=== PATIENT | female | born 1995 | race African-American/Black ===

== ENCOUNTER 2019-11-22 20:47 | Emergency (ER) | payer OTHER ==
[~2019-11-22] VITALS: Ht 157.5 cm; Wt 67.3 kg
[2019-11-22 20:49] VITALS: BP 109/59
== END 2019-11-22 23:05 | disposition left against medical advice (07) ==
LOC: EMS 20:47
DX: I74.9 Embolism and thrombosis of unspecified artery (principal); Z53.21 Procedure and treatment not carried out due to patient leaving prior to being seen by health care provider

== ENCOUNTER 2024-10-18 07:40 | Emergency (ER) | payer MEDICAID, OTHER ==
[~2024-10-18] VITALS: Ht 157.5 cm; Wt 55.0 kg
[2024-10-18 07:44] VITALS: TEMP 97.9
[2024-10-18] MEDS: LIDOCAINE 5% TRANSDERMAL PATCH TD ONE (08:00)
[2024-10-18] MEDS ORDERED: ACETAMINOPHEN 500 MG TABLET PO ONE (08:00)
[2024-10-18] MEDS: OxyCODONE HCL 5 MG IR TABLET PO ONE (08:01)
[2024-10-18] MEDS: SODIUM CHLORIDE 0.9% 1,000 ML IV ONE (08:50)
[2024-10-18 08:54] LABS: PLATELET COUNT (AUTO) 166 K/uL (150-450); RED BLOOD CELL COUNT(AUTO) 4.78 MIL/uL (4.00-5.20); RED CELL DISTRIBUTION WIDTH 13.9 % (11.5-14.5); WHITE BLOOD COUNT (AUTO) 4.5 K/uL (4.5-11.0)
[2024-10-18 09:11] LABS: CALCIUM, TOTAL 9.1 mg/dL (8.8-10.5); CREATININE 0.87 mg/dL (0.60-1.30); GLOMERULAR FILTR. RATE CALC > 60 mL/min (>60); GLUCOSE,RANDOM 101 mg/dL (70-110); SODIUM SERUM 141 mmol/L (136-145); UREA NITROGEN, BLOOD 7 mg/dL (7-18)
[2024-10-18 09:14] LABS: ASPARTATE AMINOTRANSFERASE 49.0 U/L (15-37); CREATINE KINASE, TOTAL ONLY 408.0 U/L (26-192); TOTAL PROTEIN, SERUM 7.5 g/dL (6.4-8.2)
[2024-10-18 10:06] LABS: APPEARANCE,URINE CLEAR (CLEAR); GLUCOSE, URINE (UA) NEGATIVE (NEGATIVE); LEUKOCYTE ESTERASE ,URINE NEGATIVE (NEGATIVE); NITRATE,URINE NEGATIVE (NEGATIVE); OCCULT BLOOD,URINE NEGATIVE (NEGATIVE); SPECIFIC GRAVITIY, URINE 1.026 (1.003-1.030)
[2024-10-18 10:21] VITALS: BP 126/81; PULSE 77; RESP 16; O2SAT 100
[2024-10-18] MEDS ORDERED: OXYC5 PO (10:29)
[2024-10-18] MEDS ORDERED: LIDO-57 TP (10:29)
[2024-10-18] MEDS ORDERED: ACET-2247 PO (10:29)
[2024-10-18] MEDS: KETOROLAC TROMETHAMINE 30 MG/ML VIAL IVP ONE (10:59)
== END 2024-10-18 11:08 | disposition home or self-care (01) ==
LOC: EMS 07:41
DX: M54.16 Radiculopathy, lumbar region (principal); F12.90 Cannabis use, unspecified, uncomplicated
CPT/HCPCS: 99284; 96374; 96361; 80048; 80076; 81003; 82550; 84703; 85025; 36415; J1885; J7030